=== PATIENT | female | born 2000 | race Caucasian/White ===

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

== ENCOUNTER 2021-11-01 15:22 | Emergency (ER) | payer BC, MEDICAID, SELFPAY ==
[~2021-11-01] VITALS: Ht 162.6 cm; Wt 52.3 kg
[2021-11-01 15:42] VITALS: BP 120/73
== END 2021-11-01 16:13 | disposition home or self-care (01) ==
LOC: ER 15:22
DX: Z02.89 Encounter for other administrative examinations (principal); F12.90 Cannabis use, unspecified, uncomplicated; Z72.89 Other problems related to lifestyle
CPT/HCPCS: 99281